=== PATIENT | female | born 1960 | race Caucasian/White ===

== ENCOUNTER 2021-04-30 14:18 | Emergency (ER) | payer OTHER, SELFPAY ==
[2021-04-30 14:25] VITALS: BP 143/78; PULSE 78; RESP 20; TEMP 36.6; O2SAT 100; BMI 20.6
--- NOTE | 2021-04-30 20:03 | PC.NURSE ---
pt repoprts x2 days of rigth sided facial numbness, rigth sided facial paraylsis noted, pt unable to close right eye
[2021-04-30] MEDS: predniSONE 20 MG TABLET 60 MG PO (20:29)
--- NOTE | 2021-04-30 20:31 | ED_ITS ---
HPI - General Adult General Chief complaint: Ear Stated complaint: paralysis of right side of face, blurry vision Time Seen by Provider: 04/30/21 20:12 Mode of arrival: Ambulatory History of Present Illness HPI narrative: 60-year-old woman with minimal medical history, mild intermittent asthma and mild anxiety controlled with sertraline presents with right-sided facial weakness. She noted pain in her year in the posterior portion of her scalp all in the right side on April 25. She stated that she did note some vesicles breaking out in the back portion of her head and also notes 1 vesicle just inside the ear canal on the right side. She has had no rashes or vesicles over her face. Over the last couple of days she is noticing right-sided facial weakness with inability to close her eyelid and drooling and sometimes food falling out the side of her mouth on the right side. Since starting the Jeanne acyclovir she states the only lesion that is left from the rashes inside her ear. She is not noticing significant visual abnormalities but some minor blurring as the eyelid is not completely closing and the eye is somewhat dry. She is also noticing increased tearing on that side for the same reason. She has no other neurologic complaints. Is not complaining of vertigo, tinnitus, hearing loss. She does note a mild headache but no fevers, cough, chills, palpitations, chest pain, lower extremity edema. Related Data Home Medications Medication Instructions Recorded Confirmed albuterol sulfate 90 mcg/actuation 2 puff INHALATION Q4-6H PRN 04/25/21 04/25/21 aerosol inhaler ipratropium bromide 18 1 puff INHALATION QID 04/25/21 04/25/21 mcg/actuation aerosol inhaler sertraline 50 mg tablet 50 mg PO DAILY 04/25/21 04/25/21 Previous Rx's Medication Instructions Recorded naproxen 500 mg tablet 500 mg PO BID PRN #30 tab 04/25/21 valacyclovir 500 mg tablet 1,000 mg PO TID 7 Days #42 tab 04/27/21 prednisone 20 mg tablet 60 mg PO DAILY #12 tab 04/30/21 Allergies Allergy/AdvReac Type Severity Reaction Status Date / Time No Known Drug Allergies Allergy Unverified 04/25/21 14:19 Review of Systems Review of Systems Narrative: Remainder of complete review of systems is otherwise unremarkable except for that included in the HPI. Patient History Medical History (Updated 04/30/21 @ 20:35 by Roxanna Blue MD) Anxiety Manuel Dotson syndrome (geniculate herpes zoster) Zoster Social History Smoking Status: Former smoker Smoking Status: Former smoker Exam Initial Vital Signs Initial Vital Signs: Vital Signs Temperature 97.8 F 04/30/21 14:25 Pulse Rate 78 04/30/21 14:25 Respiratory Rate 20 04/30/21 14:25 Blood Pressure 143/78 H 04/30/21 14:25 Pulse Oximetry 100 04/30/21 14:25 General: Alert appropriate in no acute distress HEENT: Pupils equal and reactive. There are no skin lesions or vesicles over her face or scalp. There is a small healing dried area just inside the inner ea r on the right side. Respiratory: Able to speak in full sentences, no obvious respiratory distress Skin: No obvious rashes, warm and dry Neurologic: Weakness to the right side of the face with difficulty closing her right eyelid completely, right facial droop. No sensory abnormalities. Remainder of neurologic exam is otherwise grossly nonfocal Psych: appropriate insight and affect, cooperative Course Orders Ordered: Discontinued Medications Prednisone (Prednisone 20 Mg Tablet) 60 mg PO NOW ONE Stop: 04/30/21 20:24 Last Admin: 04/30/21 20:29 Dose: 60 mg Documented by: OSCAR Vital Signs Vital signs: Vital Signs - 8 hr 04/30/21 14:25 Temperature 97.8 F Pulse Rate 78 Respiratory Rate 20 Blood Pressure 143/78 H Pulse Oximetry 100 Medical Decision Making [facility] Narrative Medical decision making narrative: 60-year-old woman who has been on valacyclovir for the last 5 days for what she presumed was a shingles outbreak the posterior portion of her right scalp and ear canal. Over the last couple of days she is now having Ramirez's palsy type symptoms including the right side of her face. She was concerned that the zoster may be affecting her eye as the eye vision is somewhat blurred. The blurring is because the eyelid is not closing completely rather than significant acuity issues. Again, no vesicles or involvement of face at the time of our exam. 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 She is given 60 mg of prednisone in the emergency department and additional prescription for 4 days. Went over signs and symptoms of worsening complaints and she is safe for home discharge Discharge Plan Departure Patient Disposition: Home Clinical Impression: [place] Dotson syndrome (geniculate herpes zoster) Instructions: Ramirez Palsy, DI for Shingles Activity Restrictions/Additional Instructions: Thank you for coming in today At this time, you very clearly do have a Ramirez's palsy. This is a cranial nerve 7 problem that usually is related to some type of herpes virus. We typically treated with antiviral medications like you are currently taking and prednisone. Sometimes shingles is that herpes virus that sets off the Ramirez's palsy and can also affect cranial nerve 8. This is called Manuel Dotson syndrome. The symptoms are similar for all of and the treatment is the same. I am going to have you take 60 mg of prednisone for a total of 5 days, your given your 1st dose in the emergency department. At this time, the only skin lesion that I can see is the small crusted 1 inside your ear. You do not have any ocular involvement at this time. Aleve and Tylenol are very appropriate for pain control as needed Please complete the course of valacyclovir that you have already started. If you have worsening symptoms, I would recommend following up with your primary care physician. I hope you get better quickly Prescriptions: New prednisone 20 mg tablet 60 mg PO DAILY Qty: 12 0RF No Action valacyclovir 500 mg tablet 1,000 mg PO TID 7 Days Qty: 42 0RF sertraline 50 mg tablet 50 mg PO DAILY 0RF albuterol sulfate 90 mcg/actuation HFA aerosol inhaler 2 puff inhalation Q4-6H PRN0RF ipratropium bromide 18 mcg/actuation aerosol 1 puff inhalation QID 0RF naproxen 500 mg tablet 500 mg PO BID PRN (Reason: pain) Qty: 30 0RF Rx Instructions: Take with food Referrals: Grecia Menjivar PA-C [Primary Care Provider] -
[2021-04-30 20:35] VITALS: BP 144/68; PULSE 77; RESP 12; O2SAT 98
== END 2021-04-30 20:36 | disposition home or self-care (01) ==
PROVIDERS: Emergency Provider Emergency Medicine; PCP Physician Assistant
DX: B02.21 Postherpetic geniculate ganglionitis (principal)
CPT/HCPCS: 99283